=== PATIENT | male | born 1965 | race Caucasian/White ===

== ENCOUNTER 2021-12-01 07:56 | Outpatient (CLI) | payer OTHER, SELFPAY ==
[2021-12-01 13:12] LABS: Chloride* 103 mmol/L (96-114)
[2021-12-01 13:13] LABS: Potassium* 4.1 mmol/L (3.6-5.1); Sodium* 134 mmol/L (135-149)
[2021-12-01 13:15] LABS: Alkaline Phosphatase* 79 U/L (40-150); Aspartate Amino Transferase* 21 U/L (12-35); Bilirubin Total* 0.6 mg/dL (0.1-1.5); Blood Urea Nitrogen* 23 mg/dL (7-30); Carbon Dioxide* 26 mmol/L (20-32); Creatinine* 0.9 mg/dL (0.5-1.5); Estimated Glomerular Filt Rate 101 ml/min; Total Protein* 6.2 g/dL (6.0-8.3)
[2021-12-01 13:16] LABS: Alanine Aminotransferase* 31 U/L (4-50); Calcium* 8.7 mg/dL (8.4-10.6); Glucose* 175 mg/dL (60-115)
--- OUTSIDE RECORDS SUMMARY | 2021-12-26 13:02 | XMS_ITS | Encounter Summary ---
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
--- OUTSIDE RECORDS SUMMARY | 2021-12-26 13:02 | XMS_ITS | Encounter Summary ---
:1965 Author Organization [facility] Address [address] [place] [address] Care Team Providers Name Role Phone Daryn Mackay MD Primary Care Provider [phone] Encounter Details Date Type Department Care Team Description 05/02/2018 Travel Social History Tobacco Use Types Packs/Day Years Used Date Never Assessed Sex Assigned at Date Recorded Not on file documented as of this encounter Plan of Treatment Not on filedocumented as of this encounter Visit Diagnoses Not on filedocumented in this encounter Care Teams Partner Alliance Manager Relationship Specialty Start Date End Date Daryn Mackay MD PCP - General 04/23/18 documented as of this encounter
--- OUTSIDE RECORDS SUMMARY | 2021-12-26 13:02 | XMS_ITS | Encounter Summary ---
:1965 Author Organization [place] Address [address] [place] [id number] Care Team Providers Name Role Phone Daryn Mackay MD Primary Care Provider Reason for Visit Auth/Cert Specialty Diagnoses / Procedures Referred By Contact Refer red To Contact Gastroenterology Diagnoses screening Pr Endoscopy Procedures COLONOSCOPY [address] [facility] [place] [phone] Phone: Fax: Referral ID Status Reason Start Date Expiration Date Visits Requ ested Visits Authorized [id number] 1 1 Encounter Details Date Type Department Care Team Description 05/02/2018 Surgery [facility] Eleni Rose COLONOSCOPY, Clinic Kaylin Gunn DO SINGLE OR MULTIPLE [address] [facility] [address] [facility] BIOPSY/POLYPECTOMY BY [place] [phone] [place] [address] BIOPSY [phone] (Wo rk) Surgery Details Date/Time Status Location OR Service Patient Class Case Case Trauma Class Type Case? 05/02/18 8:15 Posted [place] [facility] GI 02 General Outpatient AM Panel 1 Procedure [facility] Anes Op Region Wound Class Commen ts COMBINED N/A Monitor Rectum II-Clean colonoscopy wi th COLONOSCOPY, Anesthesia Care Contaminated biops ies, SINGLE OR polypectomy an d MULTIPLE clip placement BIOPSY/POLYPECTOM Y BY BIOPSY Surgeon Surgeon Role Service Panel Eleni Rose DO Primary General 1 Special Needs Daryn Mackay MD/ [facility] Prep information emailed to [email or web address] 03-10-18 je pt called to reschedule documented in this encounter Social History Tobacco Use Types Packs/Day Years Used Date Never Assessed Sex Assigned at Date Recorded Not on file documented as of this encounter Last Filed Vital Signs Vital Sign Reading Time Taken Comments Blood Pressure 98/55 05/02/2018 9:00 AM THERAPIST PHYS Pulse - - Temperature 36.8 ??C (98.3 ??F) 05/02/2018 7:34 AM THERAPIST PHYS Respiratory Rate 16 05/02/2018 9:00 AM THERAPIST PHYS Oxygen Saturation 94% 05/02/2018 9:00 AM THERAPIST PHYS Inhaled Oxygen Concentration - - Weight 120.2 kg (265 lb) 05/02/2018 7:34 AM THERAPIST PHYS Height 182.9 cm (6') 05/02/2018 7:34 AM THERAPIST PHYS Body Mass Index 35.94 05/02/2018 7:34 AM THERAPIST PHYS documented in this encounter Medications at Time of Discharge Medication Sig Dispensed Refills Start Date End Date amLODIPine (NORVASC) 5 MG Take 5 mg by mouth 0 tablet daily apremilast (OTEZLA) 30 MG Take 30 mg by mouth 2 0 tablet times daily aspirin (ASA) 325 MG EC Take 325 mg by mouth 0 tablet daily losartan-hydrochlorothiazi Take 1 tablet by 0 de (HYZAAR) 100-12.5 MG mouth daily tablet documented as of this encounter H&P Notes Eleni Rose, - 05/02/2018 7:28 AM CST 53 year old year old male here for colonoscopy for screening. Patient has history of collagenous colitis. Denies any changes in stool. Occasionally has blood when he wipes, however believes he has hemorrhoids. There is no problem list on file for this patient. Past Medical History: Diagnosis Date ??? Hypertension History reviewed. No pertinent surgical history. History reviewed. No pertinent family history. No current outpatient medications on file. Allergies Allergen Reactions ??? Nka [No Known Allergies] Pt Exam: There were no vitals taken for this visit. Awake, Alert OX3 Lungs - CTA bilaterally CV - RRR, no murmurs, distal pulses intact Abd - soft, non-distended, non-tender, +BS Extr - No cyanosis or edema A/P 53 year old year old male in need of colonoscopy for screening. Risks, benefits, alternatives, and complications were discussed including the possibility of perforation, bleeding, missed lesion andthe patient agreed to proceed Eleni Rose DO on 05/02/2018 at 7:27 AM APIST PHYS documented in this encounter Miscellaneous Notes Brief Op Note - Eleni Rose DO - 05/02/2018 8:52 AM CST [facility] Brief Operative Note Pre-operative diagnosis: screening Post-operative diagnosis * No post-op diagnosis entered * Procedure: Procedure(s): COMBINED COLONOSCOPY, SINGLE OR MULTIPLE BIOPSY/POLYPECTOMY BY BIOPSY Surgeon: Surgeon(s) and Role: * Eleni Rose DO - Primary Anesthesia: Monitor Anesthesia Care Estimated blood loss: Minimal Drains: None Specimens: ID Type Source Tests Collected by Time Destination A : eval for chronic diarrhea Biopsy Large Intestine, Left/Descending SURGICAL PATHOLOGY EXAM Eleni Rose, 05/02/2018 8:20 AM B : Biopsy Large Intestine, Transverse SURGICAL PATHOLOGY EXAM Eleni Rose DO 05/02/2018 8:27 AM C : Polyp Large Intestine, Rectum SURGICAL PATHOLOGY EXAM Eleni Rose, 05/02/2018 8:35 AM Findings: 1. Sigmoid diverticulosis 2. 20mm polyp at 20 cm, removed with hot snare, hot forceps, clips applied after intervention, tattooed distally Complications: None. Implants: None. Eleni Rose DO on 05/02/2018 at 8:52 AM APIST PHYS documented in this encounter Plan of Treatment Not on filedocumented as of this encounter Procedures Procedure Name Priority Date/Time Associated Comments Diagnosis SURGICAL PATHOLOGY Routine 05/02/2018 8:20 AM Res ults for this EXAM THERAPIST PHYS procedure are i n the results section. COLONOSCOPY, WITH 05/02/2018 8:09 AM screening POLYPECTOMY AND THERAPIST PHYS BIOPSY Special Needs Daryn Mackay MD/ [facility] Prep information emailed to [email or web address] 03-10-18 pt called to reschedule COLONOSCOPY Routine 05/02/2018 8:02 AM THERAPIST PHYS Resul ts for this procedure are in the results section . documented in this encounter Results Surgical pathology exam (05/02/2018 8:20 AM THERAPIST PHYS) Component Value Ref Test Analysis Performed At [facility] Range Method Time Signature Copath Report Patient Name: BRANDON CHEN MR#: [id number] Specimen #: [id number] Collected: 05/02/2018 Received: 05/02/2018 Reported: 05/05/2018 11:30 Ordering Phy(s): ELENI ROSE For improved result formatting, select 'View Enhanced Report Format' under Linked Documents section. SPECIMEN(S): A: Colon biopsy, descending B: Colon biopsy, transverse C: Rectal polyp FINAL DIAGNOSIS: A. Colon, descending, biopsy: - No diagnostic alterations - see comment. B. Colon, transverse, biopsy: - No diagnostic alterations. C. Rectum, polyp, polypectomy: - Villous adenoma - No evidence of high grade dysplasia or malignancy. COMMENT: There is patchy mild thickening of the subepithelial collage n layer with some denudation. ??This is not seen in specimen B. ??In the lack of history of watery diarrhea, t he findings could be nonspecific, however an evolving collagenous colitis cannot be ruled out. Electronically signed out by: Aron Herrera M.D., PhD CLINICAL HISTORY: 53 year old male. ??Screening colonoscopy showed 2.0 cm po lyp in rectum and sigmoid diverticulosis. GROSS: Three specimen containers with formalin are received labeled with the patient's name, date of , and medical record number. ??Information on the requisition slip , containers, and associated labels is confirmed. A. The specimen is designated large intestine left/descendi ng. The specimen consists of a single pale smallwood soft tissue fragment measuring 0.4 cm in greatest dimension. The specimen is entirely submitted in one cassette. B. The specimen is designated large intestine, transverse. The specimen consists of two pale smallwood soft tissue fragments measuring up to 0.3 cm in greatest dimension. The specimen is entirely submitted in one cassette. C: ??The specimen is designated large intestine, rectum. T he specimen consists of multiple pale smallwood soft tissue fragments ranging from 0.2 cm to 2.1 cm in greatest dimension. ??The resection margin of the largest polyp is inked blue and the polyp is sectioned. ??The specim en is entirely submitted. ??Summary of cassettes: C1 - smaller polyps C2-C4 - largest polyp, sectioned (Dictated by: Kelsey Trimble 05/02/2018 04:49 PM) MICROSCOPIC: Microscopic examination is performed. CPT Codes: A: 71003-WC6 B: 95042-CO7 C: 65455-FZ3 TESTING LAB LOCATION: [address] [address] COLLECTION SITE: Client: [facility] Location: [place] ([place]) Specimen (Source) Anatomical Collection Method Collection Time Re ceived Time Location / / Volume Laterality Specimen from LARGE INTESTINE 05/02/2018 8:20 unspecified body PART / Unknown AM THERAPIST PHYS site obtained by biopsy (specimen) Specimen from LARGE INTESTINE 05/02/2018 8:27 unspecified body PART / Unknown AM THERAPIST PHYS site obtained by biopsy (specimen) Polyp (morphologic RECTUM STRUCTURE / 05/02/2018 8:35 abnormality) Unknown AM THERAPIST PHYS Eleni OLIVEIRA - [place] Performing Organization Address City/State/ZIP Code Phon e Number [place] COLONOSCOPY (05/02/2018 8:02 AM THERAPIST PHYS) [facility] Method Time Signature COLONOSCOPY RADIOLOGY Patient Name: Brandon Chen ?Procedure Da te: 05/02/2018 8:02 AM RESULTS ? Date of Bir th: 1965 Admit Type: Outpatient ?Age: 53 Gender: Male ?Attending MD: Eleni Rose MD Total Sedation Time: ? Procedure: ? Colonoscopy Indications: ? Screening for colorectal malignant neoplasm Providers: ? Eleni Rose MD, Alex Christian RN Referring : ?Daryn Mackay Medicines: ? Monitored Anesthesia Care Complications: ? No immediate complications. Procedure: ? Pre-Anesthesia Assessment: ? - Prior to the procedure, a History and Physical was ? performed, and patient medications, allergies and ? sensitivities were reviewed. The patient's tolerance of ? previous anesthesia was revie wed. ? - The risks and benefits of the procedure and the ? sedation options and risks were discussed with the ? patient. All questions were answered and informed ? consent was obtained. ? - Patient identification and proposed procedure were ? verified prior to the procedure by the physician, the ? nurse and the environmental tech. The procedure was verified in ? the pre-procedure area in the endoscopy suite. ? After obtaining informed consent, the colonoscope was ? passed under direct vision. Throughout the procedure, ? the patie nt's blood pressure, pulse, and oxygen ? saturations were monitored continuously. The Colonoscope ? was introduced through the anus and advanced to the ? cecum, identified by appendiceal orifice and ileocecal ? valve. The colonoscopy was performed without difficulty. ? The patient tolerated the procedure well. The quality of ? the bowel preparation was goo d. ? Findings: ? The perianal and digital rectal examinations were nor mal. Pertinent ? negatives include normal sphincte r tone, no palpable rectal lesions and ? normal prostate (size, shape, and consistency). ? A 20 mm polyp was found in the recto-sigm oid colon at 20 cm. The polyp ? was pedunculated. Polypectomy was attempted, initiall y using a hot ? snare. Polyp resection was incomplete with this devic e. This ? intervention then req uired a different device and polypectomy technique. ? The polyp was removed with a piecemeal technique usin g a hot biopsy ? forceps. Resection an d retrieval were complete. Estimated blood loss was ? minimal. To prevent bleeding after mucosal resectio n, two hemostatic ? clips were successfully placed. T here was no bleeding at the end of the ? procedure. Area was t attooed distally with an injection of 2 mL of Sindhu ? ink. Specimen verified with nurse and tech with name and MRN. ? Biopsies were taken with a cold f orceps in the ascending and transverse ? colon for histology. EBL was minimal. A clip was appl ied for ? intramucosal hematoma from initial biopsy to prevent bleeding ? successfully. No bleeding at end of maneuver. Speci men verified with ? nurse and tech with name and MRN. ? Diverticulosis of sigmoid colon ? Impression: ?- One 20 mm polyp at the recto-sigmoid colon, removed ? piecemeal using a hot biopsy forceps. Resected and ? retrieved. Clips were placed. Tattooed. ? - Biopsies were taken with a cold forceps for histology ? in the as cending colon and transverse colon for ? histology. ? - Sigmoid diverticulosis Recommendation: ?- Discharge patient to home (ambulat ory). ? - High fiber diet indefinitel y. ? - Continue present medication s. ? - Await pathology results. ? - Repeat colonoscopy in 1 year for surveillance after ? piecemeal polypectomy. ? Signed Electronically by Eleni Rose MD Eleni Rose MD 05/02/2018 8:51:39 AM I was physically present for the entire viewing portion of t he exam. [id number] Rose MD Number of Addenda: 0 Note Initiated On: 05/02/2018 8:02 AM Scope In: 8:12:02 AM Scope Out: 8:46:05 AM Specimen (Source) Anatomical Collection Method Collection Time Re ceived Time Location / / Volume Laterality 05/02/2018 8:02 AM THERAPIST PHYS Daryn Mackay MD PROCEDURES Performing Organization Address City/State/ZIP Code Phon e Number RADIOLOGY RESULTS documented in this encounter Visit Diagnoses Not on filedocumented in this encounter Administered Medications Inactive Administered Medications - up to 3 most recent administrations Medication Order MAR Action Action Date Dose Rate Site lactated ringers infusion New Bag 05/02/2018 7:42 AM THERAPIST PHYS 30 mL/hr at 30 mL/hr, Intravenous, CONTINUOUS, On admission to procedural area. Do NOT use in patient having renal dialysis., Pre-procedure, Starting on Sat05/02/18 at 0715, Until Sat05/02/18 at 1126 lidocaine (LMX4) kit Topical, EVERY 1 HOUR PRN, pain, with VA D insertion or accessing implanted port., Starting on Sat05/02/18 at 0710, Do NOT give if patient has a history of allergy to any local anesthetic or any eliz product. Apply 30 minutes prior to VAD insertion or port access. MAX Dose: 2.5 g (?? of 5 g t ube), Pre-procedure lidocaine 1 % 1 mL Given 05/02/2018 7:43 AM THERAPIST PHYS 1 mL 1 mL, Other, EVERY 1 HOUR PRN, mild pain with VAD insertion or accessing implanted port, Starting on Sat05/02/18 at 0710, Do NOT give if patient has a history of allergy to any local anesthetic or any eliz product. MAX dose 1 mL subcutaneous OR intradermal in divided doses., Pre-procedure ondansetron (ZOFRAN) injection 4 mg 4 mg, Intravenous, ONCE PRN, nausea, vomiting, Adminis ter over 2-5 Minutes, Starting on Sat05/02/18 at 0710, For 1 dose, Give in ENDO pre procedure prep area. Irritant. For ordered IV doses 0.1-4 mg, give IV Push undiluted over 2-5 minutes., Pre-procedure sodium chloride (PF) 0.9% PF flush 3 mL 3 mL, Intracatheter, EVERY 1 HOUR PRN, l ine flush, for peripheral IV flush post IV meds, Starting on Sat05/02/18 at 0710, Pre-procedure sodium chloride (PF) 0.9% PF flush 3 mL 3 mL, Intracatheter, EVERY 8 HOURS, First dose on Sat05/02/18 at 0715, And Q1H PRN, to lock peripheral IV dormant line., Pre-procedur e documented in this encounter Active and Recently Administered Medications Times are shown in THERAPIST PHYS. Scheduled Medication Order 04/30/2018 05/01/2018 05/02/2018 sodium chloride (PF) 0.9% PF flush 3 mL 0715 (Canceled Entry - Provider: Orders Generic Provider - Comment: Automatically canceled at discontinue of medication order) 3 mL, Intracatheter, EVERY 8 HOURS, Firs t dose on Sat05/02/18 at 0715, And Q1H PRN, to lock peripheral IV dormant line., Pre-procedure Continuous Medication Order 04/30/2018 05/01/2018 05/02/2018 lactated ringers infusion 0742 ( New Bag - Provider: Keke Kyle, RN) at 30 mL/hr, Intravenous, CONTINUOUS, On admission to procedural area. Do NOT use in patient having renal dialysis., Pre-procedure, Starting Sat05/02/18 at 0715, Until Sat05/02/18 at 1126 PRN Medication Order 04/30/2018 05/01/2018 05/02/2018 flumazenil (ROMAZICON) injection 0.2 mg 0.2 mg, Intravenous, EVERY 1 MIN PRN, be nzodiazepine reversal, over sedation, Administer over 1 Minutes, Starting Sat05/02/18 at 0854, For 12 hours, Give over 15 seconds. If inadequate response after 4 5 seconds, may repeat up to a MAX total dose of 1 mg. Continue monitoring until discharge criteria are met for a minimum of 2 hours Irritant. For ordered IV doses 0.1-1 mg, give IV Push undiluted. Admin ister each 0.2mg over 15 seconds., Post-procedure lidocaine (LMX4) kit Topical, EVERY 1 HOUR PRN, pain, with VA D insertion or accessing implanted port., Starting Sat05/02/18 at 0710, Do NOT give if patient has a history of allergy to any local anesthetic or any eliz pr oduct. Apply 30 minutes prior to VAD ins ertion or port access. MAX Dose: 2.5 g (?? of 5 g tube), Pre-procedure lidocaine 1 % 1 mL 0743 (Given - Provider: Keke Kyle, RN) 1 mL, Other, EVERY 1 HOUR PRN, mild pain with VAD insertion or accessing implanted port, Starting Sat05/02/18 at 0710, Do NOT give if patient has a history of allergy to any local anesthetic or any ca ine product. MAX dose 1 mL subcutaneous OR intradermal in divided doses., Pre-procedure naloxone (NARCAN) injection 0.1-0.4 mg 0.1-0.4 mg, Intravenous, EVERY 2 MIN PRN , opioid reversal, Starting Sat05/02/18 at 0854, For 24 hours, For apnea or imminent respiratory arrest: give 0.4 mg IV undiluted Q 2 minutes PRN until desired d egree of reversal is obtained, stop opio id and notify provider. Continue monitoring until discharge criteria are met for a minimum of 2 hours. For severe sedation, decrease in respiratory depth, quality or Respiratory Rate less than 8: give 0 .1 mg IV Q 2 minutes x 3 doses, stop opioid and notify provider. Try to minimize reversal of analgesia especially in end-of-life patients. Continue monitoring unt il discharge criteria are met for a mini mum of 2 hours For ordered IV doses 0.1- 2mg give IVP. Give each 0.4mg over 15 seconds in emergency situations. For non- emergent situations further dilute in 9mL o f NS to facilitate titration of response., Post-procedure ondansetron (ZOFRAN) injection 4 mg 4 mg, Intravenous, ONCE PRN, nausea, vom iting, Administer over 2-5 Minutes, Starting Sat05/02/18 at 0710, For 1 dose, Give in ENDO pre procedure prep area. Irritant. For ordered IV doses 0.1-4 mg, give IV Push undiluted over 2-5 minutes., Pre-procedure sodium chloride (PF) 0.9% PF flush 3 mL 3 mL, Intracatheter, EVERY 1 HOUR PRN, l ine flush, for peripheral IV flush post IV meds, Starting Sat05/02/18 at 0710, Pre-procedure sodium chloride (PF) 0.9% PF flush 3 mL 3 mL, Intravenous, EVERY 1 MIN PRN, line flush, after medication administration. 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
--- OUTSIDE RECORDS SUMMARY | 2021-12-26 13:02 | XMS_ITS | Encounter Summary ---
:1965 Author Organization [facility] Address [address] [place] [address] Care Team Providers Name Role Phone Daryn Mackay MD Primary Care Provider [phone] Reason for Visit Auth/Cert Specialty Diagnoses / Procedures Referred By Contact Refer red To Contact Gastroenterology Diagnoses screening [place] Endoscopy Procedures COLONOSCOPY [address] [place], [place] [phone] Phone: Fax: Referral ID Status Reason Start Date Expiration Date Visits Requ ested Visits Authorized [id number] 1 1 Encounter Details Date Type Department Care Team Description 05/02/2018 Anesthesia Event [facility] Jeremy Coulter APRN PUNCHBOARD STUFFER [address] [place] [address] [place] Prasanth Ruth APRN CRNA [facility] ANESTHESIA [address] [place] [address] [address] [place] [address] 13 Anesthesia Record Procedure Summary Procedure Name Responsible Anesthesia Start Anesthesia Stop Time Anesthesiologist Time COMBINED Jeremy Mendoza APRN CRNA 05/02/18 0809 05/02 0853 COLONOSCOPY, SINGLE OR MULTIPLE BIOPSY/POLYPECTOMY BY BIOPSY (N/A Rectum) Events Date Time Event Comment 05/02/2018 0809 An Start 0809 An Start Data 0817 0851 an stop data 0853 An Stop Electronically s igned by Jeremy Mendoza on May 02, 2018 8:54 AM Name Total propofol 10 mg/mL 600 mg Agents Name NO HELIOX O2 N2O Air Exp Sevoflurane Exp Isoflurane Exp Desflurane Exp N2O Ins Sevoflurane Ins Isoflurane Ins Desflurane O2 Auxiliary Blood No blood administrations on file. Lines, Drains, and Airways Type Details Placement Removal Peripheral IV 05/02/18; 0742; 20 G; 05/02/18 0742 by 05/02/18 0832 by Right; Hand; Keke Kyle RN Higgins, Mado nna, Injectable; Tolerated RN well Retired Non-Surgical 05/02/18; 0815; 100; 05/02/18 0815 by 05/02 0820 by Airway oral Jeremy Mendoza APRN Yoshida, K ent N, CRNA APRN CRNA documented in this encounter Social History Tobacco Use Types Packs/Day Years Used Date Never Assessed Sex Assigned at Date Recorded Not on file documented as of this encounter OR Notes Anesthesia Postprocedure Evaluation - Jeremy Mendoza APRN CRNA - 05/02/2018 8:55 AM CST Patient: Balwinder Chen Procedure(s): COMBINED COLONOSCOPY, SINGLE OR MULTIPLE BIOPSY/POLYPECTOMY BY BIOPSY Diagnosis:screening Diagnosis Additional Information: No value filed. Anesthesia Type: No value filed. Note: Anesthesia Post Evaluation Patient location during evaluation: Bedside Patient participation: Able to fully participate in evaluation Level of consciousness: combative Pain management: adequate Airway patency: patent Cardiovascular status: acceptable Respiratory status: acceptable Hydration status: acceptable PONV: none Anesthetic complications: None Last vitals: Vitals: 05/02/18 0734 BP: 117/87 Resp: 16 Temp: 36.8 ??C (98.3 ??F) SpO2: 94% Electronically Signed By: Jeremy Mendoza APRN CRNA May 02, 2018 8:55 AM ETRICS TECH Anesthesia Preprocedure Evaluation - Jeremy Mendoza APRN CRNA - 05/01/2018 6:54 AM CST Anesthesia Pre-Procedure Evaluation Patient: Balwinder Chen : 1965 Preoperative Diagnosis: screening Procedure(s): COLONOSCOPY Past Medical History: Diagnosis Date ??? Hypertension History reviewed. No pertinent surgical history. Anesthesia Evaluation . Pt has had prior anesthetic. Type: MAC No history of anesthetic complications ROS/MED HX ENT/Pulmonary: (+)sleep apnea, ADRIANA risk factors , . . Neurologic: - neg neurologic ROS Cardiovascular: (+) hypertension----. : . . . :. . METS/Exercise Tolerance: >4 METS Hematologic: - neg hematologic ROS Musculoskeletal: - neg musculoskeletal ROS GI/Hepatic: - neg GI/hepatic ROS Renal/Genitourinary: - ROS Renal section negative Endo: (+) Obesity, . Psychiatric: - neg psychiatric ROS Infectious Disease: - neg infectious disease ROS Malignancy: - no malignancy Other: - neg other ROS Physical Exam Normal systems: cardiovascular, pulmonary and dental Airway Mallampati: I TM distance: >3 FB Neck ROM: full Dental Cardiovascular Rhythm and rate: regular and normal Pulmonary breath sounds clear to auscultation No results found for: WBC, HGB, HCT, PLT, CRP, SED, NA, POTASSIUM, CHLORIDE, CO2, BUN, CR, GLC, PILI,PHOS, MAG, ALBUMIN, PROTTOTAL, ALT, AST, GGT, ALKPHOS, BILITOTAL, BILIDIRECT, LIPASE, AMYLASE, MATT, PTT, INR, FIBR, TSH, T4, T3, HCG, HCGS, CKTOTAL, CKMB, TROPN Preop Vitals BP Readings from Last 3 Encounters: No data found for BP Pulse Readings from Last 3 Encounters: No data found for Pulse Resp Readings from Last 3 Encounters: No data found for Resp SpO2 Readings from Last 3 Encounters: No data found for SpO2 Temp Readings from Last 1 Encounters: No data found for Temp Ht Readings from Last 1 Encounters: No data found for Ht Wt Readings from Last 1 Encounters: No data found for Wt There is no height or weight on file to calculate BMI. Anesthesia Plan History & Physical Review History and physical reviewed and following examination; no interval change. ASA Status: 3 . NPO Status: > 6 hours Plan for MAC Reason for MAC: Deep or markedly invasive procedure (G8) Postoperative Care Consents Anesthetic plan, risks, benefits and alternatives discussed with: Patient.. Prasanth Ruth CRNA, JOCELYNE PUNCHBOARD STUFFER ETRICS TECH documented in this encounter Plan of Treatment Not on filedocumented as of this encounter Visit Diagnoses Not on filedocumented in this encounter Administered Medications Inactive Administered Medications - up to 3 most recent administrations Medication Order MAR Action Action Date Dose Rate Site propofol (DIPRIVAN) injection 10 Given 05/02/2018 8:43 AM OBSTETRICS TECH 10 0 mg mg/mL vial PRN, Starting on Sat05/02/18 at 0812, Anesthesia Intra-op Given 05/02/2018 8:30 AM OBSTETRICS TECH 100 mg Given 05/02/2018 8:16 AM OBSTETRICS TECH 100 mg documented in this encounter Care Teams Pharmaceutical Analyst Relationship Specialty Start Date End Date Daryn Mackay MD PCP - General 04/23/18 documented as of this encounter
--- OUTSIDE RECORDS SUMMARY | 2021-12-26 13:02 | XMS_ITS | Continuity of Care Document ---
:1965 Author Organization [facility] Address [address] [address] [place] [address] Phone Care Team Providers Name Role Phone Sherron Meza CRNA Unavailable Unavailable Allergies, Adverse Reactions, Alerts Substance Reaction Status Criticality No Known Allergies Active No Informatio n Medications Medication Instructions Dosage Effective Status Comments Dates (start - stop) Otezla 30 mg take 1 tablet by 30 MG - Active tablet oral route 2 times every day approximately 12 hours apart LOSARTAN-HYDROCHLO take 1 tablet by Not Available - Activ e ROTHIAZIDE oral route every (unknown strength) day AMLODIPINE take 1 tablet by Not Available - Active BESYLATE (unknown oral route every strength) day METFORMIN ER take 2 tablet by Not Available - Active OSMOTIC (unknown oral route every strength) day with the evening meal TESTOSTERONE inject 0.5 Not Available - Active CYPIONATE (unknown milliliter by strength) intramuscular route every 4 weeks VITAMIN D3 take 1 tablet by Not Available - Active (unknown strength) oral route every day JATENZO (unknown take 1 capsule by Not Available - No Curry papa strength) oral route 2 times Active every day in the morning and evening Procedures Procedure Date Colonoscopy Flex; W/remov Les- Level Iv-surg Path Gross/micro Advance Directives Directive Yes / No Effective Date File Name No Information Encounters Encounter Practice Location Reason(s) Diagnoses Date Provider Provide rs Description For Visit Copied on Encounter [facility] No Information Derrick Referri ng [facility] INSERTER Provider: Health JOSE M, Endoscopy [address] Sherron. Mario [address] [place] [address], [place] A, [address] [facility] [place], [place], [place] [place] [id number], 500, [address], [place] [facility] tel: [place], [place], [place], [place], [phone] [id number] , [place]. . tel: tel: [phone] [facility] GI Screening Oct- Aurea YOUNG Referring [facility] Symptoms ColonoscopyBenign Mario. Pro vider: Health [place], Endoscopy or neoplasm of [address] Concerns rectum[place]ounter [place] [address], (chief for screening for Jaylen YOUNG, [address] [facility] complaint) malignant neoplasm [place], [place], [place], of colon [address], [id number], [facility] is, [place], , [place], tel: [phone] , [place]. tel: tel: [phone] [facility] No Information [facility]ina [facility], [address] [address], [facility] [place], [place], [place], [place] [id number], [address], [place] tel: [place], [place], [phone] , [place]. tel: [phone] Family History Family Member Type Diagnosis Age At Onset Mother Problem (finding) Asthma Immunizations Vaccine Date Status Comments SARS-COV-2 (COVID-19) vaccine, administered N ote: MIIC bi-directional mRNA, spike protein, LNP, interf kasey ; Source: Other preservative free, 30 mcg/0.3mL Registry dose Seasonal, quadrivalent, administered Note: PA IC bi-directional recombinant, injectable interfac e ; Source: Other influenza vaccine, preservative Registry free zoster vaccine recombinant administered Note: MIIC bi-directional interface ; Sour ce: Other Registry zoster vaccine recombinant administered Note: MIIC bi-directional interface ; Sour ce: Other Registry SARS-COV-2 (COVID-19) vaccine, administered N ote: MIIC bi-directional mRNA, spike protein, LNP, interf kasey ; Source: Other preservative free, 30 mcg/0.3mL Registry dose SARS-COV-2 (COVID-19) vaccine, administered N ote: MIIC bi-directional mRNA, spike protein, LNP, interf kasey ; Source: Other preservative free, 30 mcg/0.3mL Registry dose Influenza, seasonal, injectable, administered Note: MIIC bi-directional preservative free interface ; So urce: Other Registry Payers Payer name Insurance type Covered republican ID Authorization(s ) Erika [id number] Social History Type Description Quantity Date Captured Comments Sex Male Smoking Status No Information Chief Complaint And Reason For Visit No Information Reason For Referral Reason For Referral No Information Plan Of Treatment Date Type Action Status No Information History Of Present Illness Encounter Date Complaint History Of Present I llness GI Symptoms or Concerns Functional Status Date Functional Assessment No Information Medications Administered Medication Instructions Dosage Effective Dates Status Comment s (start - stop) JATENZO (unknown take 1 capsule by Not Available - No Curry papa strength) oral route 2 times Active every day in the morning and evening Instructions Date Instruction Additional Informati on Colon Polyps Related to Screening Colonoscopy Assessments Type Assessment Date No Information Patient Care Teams Name Effective Dates (start - stop) Status M odalys No Information
--- OUTSIDE RECORDS SUMMARY | 2021-12-26 13:02 | XMS_ITS | Encounter Summary ---
:1965 Author Organization [facility] Address [address] [place] [address] Care Team Providers Name Role Phone Daryn Mackay MD Primary Care Provider [phone] Reason for Visit Auth/Cert Specialty Diagnoses / Procedures Referred By Contact Refer red To Contact Gastroenterology Diagnoses screening [place] Endoscopy Procedures COLONOSCOPY [address] [place], [place] [address] Phone: Fax: Referral ID Status Reason Start Date Expiration Date Visits Requ ested Visits Authorized [id number] 1 1 Encounter Details Date Type Department Care Team Description 05/02/2018 Hospital Encounter [facility] Eleni Rose [facility] DO Luis A [address] [facility] [address] [place] [address] [place] [address] [phone] (Wo rk) Social History Tobacco Use Types Packs/Day Years Used Date Never Assessed Sex Assigned at Date Recorded Not on file documented as of this encounter Last Filed Vital Signs Vital Sign Reading Time Taken Comments Blood Pressure 113/78 05/02/2018 9:12 AM MUSIC INSTRUCTOR Pulse - - Temperature 36.8 ??C (98.3 ??F) 05/02/2018 7:34 AM MUSIC INSTRUCTOR Respiratory Rate 16 05/02/2018 9:12 AM MUSIC INSTRUCTOR Oxygen Saturation 95% 05/02/2018 9:12 AM MUSIC INSTRUCTOR Inhaled Oxygen Concentration - - Weight 120.2 kg (265 lb) 05/02/2018 7:34 AM MUSIC INSTRUCTOR Height 182.9 cm (6') 05/02/2018 7:34 AM MUSIC INSTRUCTOR Body Mass Index 35.94 05/02/2018 7:34 AM MUSIC INSTRUCTOR documented in this encounter Medications at Time [...] as of this encounter H&P Notes Eleni Rose DO - 05/02/2018 7:28 AM CST 53 year [...] Rose DO on 05/02/2018 at 7:27 AM C INSTRUCTOR documented in this encounter Miscellaneous Notes Brief Op Note - Eleni Rose DO - 05/02/2018 8:52 AM CST [facility] Brief Operative Note Pre-operative diagnosis: screening Post-operative [...] Large Intestine, Transverse SURGICAL PATHOLOGY EXAM Eleni Rose, 05/02/2018 8:27 AM C : Polyp Large Intestine, Rectum SURGICAL PATHOLOGY EXAM Eleni Rose, DO 05/02/2018 8:35 AM Findings: 1. Sigmoid diverticulosis 2. 20mm polyp at 20 cm, removed with hot snare, hot forceps, clips applied after intervention, tattooed distally Complications: None. Implants: None. Eleni Rose DO on 05/02/2018 at 8:52 AM C INSTRUCTOR documented in this encounter Plan of Treatment Not on filedocumented as of this encounter Procedures Procedure Name Priority Date/Time Associated Comments Diagnosis SURGICAL PATHOLOGY Routine 05/02/2018 8:20 AM Res ults for this EXAM MUSIC INSTRUCTOR procedure are i n the results section. COLONOSCOPY, WITH 05/02/2018 8:09 AM screening POLYPECTOMY AND MUSIC INSTRUCTOR BIOPSY Special Needs Daryn Mackay MD/ [facility] Prep information emailed to [email or web address] 03-10-18 pt called to reschedule COLONOSCOPY Routine 05/02/2018 8:02 AM MUSIC INSTRUCTOR Resul ts for this procedure are in the results section . documented in this encounter Results Surgical pathology exam (05/02/2018 8:20 AM MUSIC INSTRUCTOR) Component Value Ref Test Analysis Performed At [facility] Range Method Time Signature Copath Report Patient Name: BRANDON CHEN MR#: [id number] Specimen #: [id number] Collected: 05/02/2018 Received: 05/02/2018 Reported: 05/05/2018 11:30 [...] Microscopic examination is performed. CPT Codes: A: 20501-NH2 B: 53241-YW5 C: 64962-JV5 TESTING LAB LOCATION: [address] [address] COLLECTION SITE: Client: [facility] Location: [facility] ([facility] Specimen (Source) Anatomical Collection Method Collection Time Re ceived Time Location / / Volume Laterality Specimen from LARGE INTESTINE 05/02/2018 8:20 unspecified body PART / Unknown AM MUSIC INSTRUCTOR site obtained by biopsy (specimen) Specimen from LARGE INTESTINE 05/02/2018 8:27 unspecified body PART / Unknown AM MUSIC INSTRUCTOR site obtained by biopsy (specimen) Polyp (morphologic RECTUM STRUCTURE / 05/02/2018 8:35 abnormality) Unknown AM MUSIC INSTRUCTOR Eleni Rose DO [facility] Performing Organization Address City/State/ZIP Code Phon e Number [place] COLONOSCOPY (05/02/2018 8:02 AM MUSIC INSTRUCTOR) [facility] Method Time Signature COLONOSCOPY RADIOLOGY Patient Name: Brandon Chen ?Procedure Da te: 05/02/2018 8:02 AM RESULTS ? Date of Bir th: 1965 Admit Type: Outpatient ?Age: 53 Gender: Male ?Attending MD: Eleni Rose MD Total Sedation Time: ? Procedure: ? Colonoscopy Indications: ? Screening for colorectal malignant neoplasm Providers: ? Eleni Rose MD, Alex Christian RN Referring MD: ?Daryn Mackay [facility]: ? Monitored Anesthesia Care Complications: ? No [...] the physician, the ? nurse and the manager lpn. The procedure was verified in ? the [...] entire viewing portion of t he exam. [id number] Rose MD Number of Addenda: 0 Note Initiated On: 05/02/2018 8:02 AM Scope In: 8:12:02 AM Scope Out: 8:46:05 AM Specimen (Source) Anatomical Collection Method Collection Time Re ceived Time Location / / Volume Laterality 05/02/2018 8:02 AM MUSIC INSTRUCTOR Daryn Mackay MD PROCEDURES Performing Organization Address City/State/ZIP Code Phon e Number RADIOLOGY RESULTS documented in this encounter Visit Diagnoses Not on filedocumented in this encounter Administered Medications Inactive Administered Medications - up to 3 most recent administrations Medication Order MAR Action Action Date Dose Rate Site lactated ringers infusion New Bag 05/02/2018 7:42 AM MUSIC INSTRUCTOR 30 mL/hr at 30 mL/hr, Intravenous, CONTINUOUS, [...] % 1 mL Given 05/02/2018 7:43 AM MUSIC INSTRUCTOR 1 mL 1 mL, Other, EVERY 1 [...] Recently Administered Medications Times are shown in MUSIC INSTRUCTOR. Scheduled Medication Order 04/30/2018 05/01/2018 05/02/2018 sodium [...] 0742 ( New Bag - Provider: Keke Kyle RN) at 30 mL/hr, Intravenous, CONTINUOUS, On [...] 1 mL 0743 (Given - Provider: Keke Kyle RN) 1 mL, Other, EVERY 1 HOUR [...] Post-procedure documented in this encounter Care Teams Tire Recapper Relationship Specialty Start Date End Date Daryn Mackay MD PCP - General 04/23/18 documented as of this encounter
== END 2021-12-01 07:57 | disposition home or self-care (01) ==
LOC: FRMREF 07:58
PROVIDERS: PCP Physician Assistant Medical; Visit Provider Physician Assistant Medical
DX: I10 Essential (primary) hypertension (principal)
CPT/HCPCS: 80053

== ENCOUNTER 2022-02-09 07:39 | Outpatient (CLI) | payer OTHER, SELFPAY ==
--- OUTSIDE RECORDS SUMMARY | 2022-02-16 11:42 | XMS_ITS | Encounter Summary ---
:1965 Author Organization [facility] Address [address] [place] [address] Care Team Providers Name Role Phone Daryn Mackay MD Primary Care Provider [phone] Encounter Details Date Type Department Care Team Description 04/29/2018 Travel Social History Tobacco Use Types Packs/Day Years Used Date Never Assessed Sex Assigned at Date Recorded Not on file documented as of this encounter Plan of Treatment Not on filedocumented as of this encounter Visit Diagnoses Not on filedocumented in this encounter Care Teams Awning Hanger Relationship Specialty Start Date End Date Daryn Mackay MD PCP - General 04/23/18 documented as of this encounter
--- OUTSIDE RECORDS SUMMARY | 2022-02-16 11:42 | XMS_ITS | Encounter Summary ---
:1965 Author Organization [facility] Address [address] [place] [address] Care Team Providers Name Role Phone Daryn Mackay MD Primary Care Provider [phone] Reason for Visit Auth/Cert Specialty Diagnoses / Procedures Referred By Contact Refer red To Contact Gastroenterology Diagnoses screening [place] Endoscopy Procedures COLONOSCOPY [address] [place], [place] [phone] Phone: Fax: Referral ID Status Reason Start Date Expiration Date Visits Requ ested Visits Authorized [id number] 1 1 Encounter Details Date Type Department Care Team Description 05/02/2018 Anesthesia Event [facility] Jeremy Coulter APRN SHEET METAL WORKER MAINTENANCE [address] [place] [address] [place] Prasanth Ruth APRN CRNA [facility] ANESTHESIA [address] [place] [address] [address] [place] [address] 13 Anesthesia Record Procedure Summary Procedure Name [...] APRN CRNA May 02, 2018 8:55 AM R SUPERVISOR Anesthesia Preprocedure Evaluation - Jeremy Mendoza APRN [...] discussed with: Patient.. Prasanth Ruth CRNA, JOCELYNE SHEET METAL WORKER MAINTENANCE R SUPERVISOR documented in this encounter Plan of Treatment Not on filedocumented as of this encounter Visit Diagnoses Not on filedocumented in this encounter Administered Medications Inactive Administered Medications - up to 3 most recent administrations Medication Order MAR Action Action Date Dose Rate Site propofol (DIPRIVAN) injection 10 Given 05/02/2018 8:43 AM TOWER SUPERVISOR 10 0 mg mg/mL vial PRN, Starting on Sat05/02/18 at 0812, Anesthesia Intra-op Given 05/02/2018 8:30 AM TOWER SUPERVISOR 100 mg Given 05/02/2018 8:16 AM TOWER SUPERVISOR 100 mg documented in this encounter Care Teams Tool Marker Relationship Specialty Start Date End Date Daryn Mackay MD PCP - General 04/23/18 documented as of this encounter
--- OUTSIDE RECORDS SUMMARY | 2022-02-16 11:42 | XMS_ITS | Encounter Summary ---
:1965 Author Organization [facility] Address [address] [place] [address] Care Team Providers Name Role Phone Daryn Mackay MD Primary Care Provider [phone] Reason for Visit Auth/Cert Specialty Diagnoses / Procedures Referred By Contact Refer red To Contact Gastroenterology Diagnoses screening [facility] Endoscopy Procedures COLONOSCOPY [address] [place], [place] [phone] Phone: Fax: Referral ID Status Reason Start Date Expiration Date Visits Requ ested Visits Authorized [id number] 1 1 Encounter Details Date Type Department Care Team Description 05/02/2018 Hospital Encounter [facility] Eleni Rose [facility] DO Luis A [address] [facility] [address] [place] [address] [place] [address] [phone] (Wo rk) Social History Tobacco Use Types Packs/Day Years Used Date Never Assessed Sex Assigned at Date Recorded Not on file documented as of this encounter Last Filed Vital Signs Vital Sign Reading Time Taken Comments Blood Pressure 113/78 05/02/2018 9:12 AM POWER SYSTEM DISPATCHER Pulse - - Temperature 36.8 ??C (98.3 ??F) 05/02/2018 7:34 AM POWER SYSTEM DISPATCHER Respiratory Rate 16 05/02/2018 9:12 AM POWER SYSTEM DISPATCHER Oxygen Saturation 95% 05/02/2018 9:12 AM POWER SYSTEM DISPATCHER Inhaled Oxygen Concentration - - Weight 120.2 kg (265 lb) 05/02/2018 7:34 AM POWER SYSTEM DISPATCHER Height 182.9 cm (6') 05/02/2018 7:34 AM POWER SYSTEM DISPATCHER Body Mass Index 35.94 05/02/2018 7:34 AM POWER SYSTEM DISPATCHER documented in this encounter Medications at Time [...] Rose DO on 05/02/2018 at 7:27 AM R SYSTEM DISPATCHER documented in this encounter Miscellaneous Notes Brief Op Note - Eleni Rose DO - 05/02/2018 8:52 AM CST [facility] Brief Operative Note Pre-operative diagnosis: [...] Rose DO on 05/02/2018 at 8:52 AM R SYSTEM DISPATCHER documented in this encounter Plan of Treatment Not on filedocumented as of this encounter Procedures Procedure Name Priority Date/Time Associated Comments Diagnosis SURGICAL PATHOLOGY Routine 05/02/2018 8:20 AM Res ults for this EXAM POWER SYSTEM DISPATCHER procedure are i n the results section. COLONOSCOPY, WITH 05/02/2018 8:09 AM screening POLYPECTOMY AND POWER SYSTEM DISPATCHER BIOPSY Special Needs Daryn Mackay MD/ [facility] Prep information emailed to [email or web address] 03-10-18 pt called to reschedule COLONOSCOPY Routine 05/02/2018 8:02 AM POWER SYSTEM DISPATCHER Resul ts for this procedure are in the results section . documented in this encounter Results Surgical pathology exam (05/02/2018 8:20 AM POWER SYSTEM DISPATCHER) Component Value Ref Test Analysis Performed At [facility] Range Method Time Signature Copath Report Patient Name: BRANDON CHEN MR#: [id number] Specimen #: [id number] Collected: 05/02/2018 Received: 05/02/2018 Reported: 05/05/2018 11:30 [...] Microscopic examination is performed. CPT Codes: A: 72272-PQ3 B: 74462-KZ9 C: [id number] TESTING LAB LOCATION: [address] [address] COLLECTION SITE: Client: [facility] Location: [facility] ([facility]) Specimen (Source) Anatomical Collection Method Collection Time Re ceived Time Location / / Volume Laterality Specimen from LARGE INTESTINE 05/02/2018 8:20 unspecified body PART / Unknown AM POWER SYSTEM DISPATCHER site obtained by biopsy (specimen) Specimen from LARGE INTESTINE 05/02/2018 8:27 unspecified body PART / Unknown AM POWER SYSTEM DISPATCHER site obtained by biopsy (specimen) Polyp (morphologic RECTUM STRUCTURE / 05/02/2018 8:35 abnormality) Unknown AM POWER SYSTEM DISPATCHER Eelni Rose DO [facility] Performing Organization Address City/State/ZIP Code Phon e Number COPATH COLONOSCOPY (05/02/2018 8:02 AM POWER SYSTEM DISPATCHER) [facility] Method Time Signature COLONOSCOPY RADIOLOGY Patient Name: Brandon Chen ?Procedure Da te: 05/02/2018 8:02 AM RESULTS ? Date of Bir th: 1965 Admit Type: Outpatient ?Age: 53 Gender: Male ?Attending MD: Eleni Rose MD Total Sedation Time: ? Procedure: ? Colonoscopy Indications: ? Screening for colorectal malignant neoplasm Providers: ? Eleni Rose MD, Alex Christian RN Referring MD: ?Daryn Mackay [facility]: ? Monitored Anesthesia Care Complications: ? [...] the physician, the ? nurse and the apparatus engineering technologist. The procedure was verified in ? the [...] entire viewing portion of t he exam. [id number] Rose MD Number of Addenda: 0 Note Initiated On: 05/02/2018 8:02 AM Scope In: 8:12:02 AM Scope Out: 8:46:05 AM Specimen (Source) Anatomical Collection Method Collection Time Re ceived Time Location / / Volume Laterality 05/02/2018 8:02 AM POWER SYSTEM DISPATCHER Daryn Mackay MD PROCEDURES Performing Organization Address City/State/ZIP Code Phon e Number RADIOLOGY RESULTS documented in this encounter Visit Diagnoses Not on filedocumented in this encounter Administered Medications Inactive Administered Medications - up to 3 most recent administrations Medication Order MAR Action Action Date Dose Rate Site lactated ringers infusion New Bag 05/02/2018 7:42 AM POWER SYSTEM DISPATCHER 30 mL/hr at 30 mL/hr, Intravenous, CONTINUOUS, [...] % 1 mL Given 05/02/2018 7:43 AM POWER SYSTEM DISPATCHER 1 mL 1 mL, Other, EVERY 1 [...] Recently Administered Medications Times are shown in POWER SYSTEM DISPATCHER. Scheduled Medication Order 04/30/2018 05/01/2018 05/02/2018 sodium [...] Post-procedure documented in this encounter Care Teams Digital Associate Media Director Relationship Specialty Start Date End Date Daryn Mackay MD PCP - General 04/23/18 documented as of this encounter
--- OUTSIDE RECORDS SUMMARY | 2022-02-16 11:42 | XMS_ITS | Clinical Summary ---
:1965 Author Organization [facility] Address [address] [place] [address] Care Team Providers Name Role Phone Daryn Mackay MD Primary Care Provider [phone] Allergies Active Allergy Reactions Severity Noted Date Comments No Known Allergies 04/29/2018 Medications Medication Sig Dispensed Refills Start Date End Date Status apremilast (OTEZLA) 30 Take 30 mg by 0 Active MG tablet mouth 2 times daily losartan-hydrochloroth Take 1 tablet by 0 Active iazide (HYZAAR) mouth daily 100-12.5 MG tablet aspirin (ASA) 325 MG Take 325 mg by 0 Active EC tablet mouth daily amLODIPine (NORVASC) 5 Take 5 mg by mouth 0 Active MG tablet daily Active Problems Problem Noted Date colon polyp- Villious Adenoma 05/07/2018 Overview: Formatting of this note is dif ferent from the original. Collected: 05/02/2018 Received: 05/02/2018 Reported: 05/05/2018 11:30 Ordering Phy(s): ELENI ROSE For improved result formatting, select ' View Enhanced Report Format' under ??Linked Documents section. SPECIMEN(S): A: Colon biopsy, descending B: Colon biopsy, transverse C: Rectal polyp FINAL DIAGNOSIS: A. Colon, descending, biopsy: - No diagnostic alterations - see sonia rolle B. Colon, transverse, biopsy: - No diagnostic alterations. C. Rectum, polyp, polypectomy: - Villous adenoma - No evidence of high grade dysplasia or malignancy Social History Tobacco Use Types Packs/Day Years Used Date Never Assessed Sex Assigned at Date Recorded Not on file Last Filed Vital Signs Vital Sign Reading Time Taken Comments Blood Pressure 113/78 05/02/2018 9:12 AM DISTRIBUTOR OF DIRECTORIES Pulse - - Temperature 36.8 ??C (98.3 ??F) 05/02/2018 7:34 AM DISTRIBUTOR OF DIRECTORIES Respiratory Rate 16 05/02/2018 9:12 AM DISTRIBUTOR OF DIRECTORIES Oxygen Saturation 95% 05/02/2018 9:12 AM DISTRIBUTOR OF DIRECTORIES Inhaled Oxygen Concentration - - Weight 120.2 kg (265 lb) 05/02/2018 7:34 AM DISTRIBUTOR OF DIRECTORIES Height 182.9 cm (6') 05/02/2018 7:34 AM DISTRIBUTOR OF DIRECTORIES Body Mass Index 35.94 05/02/2018 7:34 AM DISTRIBUTOR OF DIRECTORIES Plan of Treatment Not on file Insurance Payer Benefit Plan / Subscriber ID Effective Dates Phone Addre ss Type Group BCBS BCBS OUT OF [id number] 2017-Present [phone] [address] [address] Indemnity STATE [address] [place] [address] Care Teams Pelt Shearer Relationship Specialty Start Date End Date Daryn Mackay MD PCP - General 04/23/18
--- OUTSIDE RECORDS SUMMARY | 2022-02-16 11:42 | XMS_ITS | Continuity of Care Document ---
:1965 Author Organization [facility] Address [address] [address] [place] [address] Phone Care Team Providers Name Role Phone [...] rs Description For Visit Copied on Encounter [facility] No Information Derrick Referri ng Digestive [facility] CHILD DEVELOPMENT TEACHER Provider: Health JOSE M, Endoscopy [address] Mario [address] [place] [address], [place] A, [address] [facility] s, [place], [place], [address] [place] [id number], 500, [place] 500, [place] [facility] tel: [place], [place], [place], [place], [address] [id number] , [place]. . tel: tel: [phone] [facility] GI Screening Oct- Aurea YOUNG Referring Digestive [facility] Symptoms ColonoscopyBenign Mario. Pro vider: Health PA, Endoscopy or neoplasm of 2 [address] Concerns [place]um[place]ounter [place] [place] [address], (chief for screening for Jaylen YOUNG, [address] 45 [facility] complaint) malignant neoplasm [place], [place], [place], of colon [address], [address], [id number], [facility] is, [place], , [place], tel: [phone]. [phone] , [place]. tel: tel: [phone] [facility] No Information [facility] Lina YOUNG [facility], [address] [address], [facility] s, [place], [place], [place] [id number], [address], [place] tel: is, [place], [id number] , [place]. tel: [phone] Family History Family Member Type Diagnosis Age At Onset Mother Problem (finding) Asthma Immunizations Vaccine Date Status Comments SARS-COV-2 (COVID-19) vaccine, administered N ote: MIIC bi-directional mRNA, spike protein, LNP, interf kasey ; Source: Other preservative free, 30 mcg/0.3mL Registry dose Seasonal, quadrivalent, administered Note: [place] IC bi-directional recombinant, injectable interfac e ; [...] Registry Payers Payer name Insurance type Covered alliance party ID Authorization(s ) Erika [id number] Social History Type Description Quantity Date Captured [...]
--- OUTSIDE RECORDS SUMMARY | 2022-02-16 11:42 | XMS_ITS | Encounter Summary ---
:1965 Author Organization [facility] Address [address] [place] [address] Care Team Providers Name Role Phone Daryn Mackay MD Primary Care Provider [phone] Reason for Visit Auth/Cert Specialty Diagnoses / Procedures Referred By Contact Refer red To Contact Gastroenterology Diagnoses screening [place] Endoscopy Procedures COLONOSCOPY [address] [facility] [place] [phone] Phone: Fax: Referral ID Status Reason Start Date Expiration Date Visits Requ ested Visits Authorized [id number] 1 1 Encounter Details Date Type Department Care Team Description 05/02/2018 Surgery [facility] Eleni Rose COLONOSCOPY, Clinic Idahoradha Gunn DO SINGLE OR MULTIPLE [address] [facility] [address] [facility] BIOPSY/POLYPECTOMY BY [place] [address] [place] [address] BIOPSY [phone] (Wo rk) Surgery Details Date/Time Status Location OR Service Patient Class Case Case Trauma Class Type Case? 05/02/18 8:15 Posted [place] GI GI 02 General Outpatient AM Panel 1 Procedure LRB Anes Op Region Wound Class Commen ts COMBINED COLONOSCOPY, N/A MAC Rectum II-Clean Conta minated colonoscopy with SINGLE OR MULTIPLE biopsi es, polypectomy BIOPSY/POLYPECTOMY BY and clip placement BIOPSY Surgeon Surgeon Role Service Panel Eleni Rose DO Primary General 1 Special Needs Daryn Mackay MD/ [facility] Prep information emailed to [email or web address] 03-10-18 ekaterina pt called to reschedule documented in this encounter Social History Tobacco Use Types Packs/Day Years Used Date Never Assessed Sex Assigned at Date Recorded Not on file documented as of this encounter Last Filed Vital Signs Vital Sign Reading Time Taken Comments Blood Pressure 98/55 05/02/2018 9:00 AM CRANBERRY GROWER Pulse - - Temperature 36.8 ??C (98.3 ??F) 05/02/2018 7:34 AM CRANBERRY GROWER Respiratory Rate 16 05/02/2018 9:00 AM CRANBERRY GROWER Oxygen Saturation 94% 05/02/2018 9:00 AM CRANBERRY GROWER Inhaled Oxygen Concentration - - Weight 120.2 kg (265 lb) 05/02/2018 7:34 AM CRANBERRY GROWER Height 182.9 cm (6') 05/02/2018 7:34 AM CRANBERRY GROWER Body Mass Index 35.94 05/02/2018 7:34 AM CRANBERRY GROWER documented in this encounter Medications at Time [...] Rose DO on 05/02/2018 at 7:27 AM BERRY GROWER documented in this encounter Miscellaneous Notes Brief Op Note - Eleni Rose DO - 05/02/2018 8:52 AM CST [facility] Brief Operative Note Pre-operative diagnosis: screening Post-operative [...] Large Intestine, Left/Descending SURGICAL PATHOLOGY EXAM Eleni Rose DO 05/02/2018 8:20 AM B : Biopsy Large Intestine, Transverse SURGICAL PATHOLOGY EXAM Eleni Rose DO 05/02/2018 8:27 AM C : Polyp Large Intestine, Rectum SURGICAL PATHOLOGY EXAM Eleni Rose DO 05/02/2018 8:35 AM Findings: 1. Sigmoid diverticulosis 2. 20mm polyp at 20 cm, removed with hot snare, hot forceps, clips applied after intervention, tattooed distally Complications: None. Implants: None. Eleni Rose DO on 05/02/2018 at 8:52 AM BERRY GROWER documented in this encounter Plan of Treatment Not on filedocumented as of this encounter Procedures Procedure Name Priority Date/Time Associated Comments Diagnosis SURGICAL PATHOLOGY Routine 05/02/2018 8:20 AM Res ults for this EXAM CRANBERRY GROWER procedure are i n the results section. COLONOSCOPY, WITH 05/02/2018 8:09 AM screening POLYPECTOMY AND CRANBERRY GROWER BIOPSY Special Needs Daryn Mackay MD/ [facility] Prep information emailed to [email or web address] 03-10-18 pt called to reschedule COLONOSCOPY Routine 05/02/2018 8:02 AM CRANBERRY GROWER Resul ts for this procedure are in the results section . documented in this encounter Results Surgical pathology exam (05/02/2018 8:20 AM CRANBERRY GROWER) Component Value Ref Test Analysis Performed At [facility] Range Method Time Signature [facility] Report Patient Name: BRANDON CHEN MR#: [id number] Specimen #: [id number] Collected: 05/02/2018 Received: 05/02/2018 Reported: 05/05/2018 11:30 [...] Microscopic examination is performed. CPT Codes: A: 65575-IY2 B: 82069-TD2 C: 74254-FA4 TESTING LAB LOCATION: [address] [address] COLLECTION SITE: Client: [facility] Location: [facility] ([place]) Specimen (Source) Anatomical Collection Method Collection Time Re ceived Time Location / / Volume Laterality Specimen from LARGE INTESTINE 05/02/2018 8:20 unspecified body PART / Unknown AM CRANBERRY GROWER site obtained by biopsy (specimen) Specimen from LARGE INTESTINE 05/02/2018 8:27 unspecified body PART / Unknown AM CRANBERRY GROWER site obtained by biopsy (specimen) Polyp (morphologic RECTUM STRUCTURE / 05/02/2018 8:35 abnormality) Unknown AM CRANBERRY GROWER Eleni Rose DO [facility] Performing Organization Address City/State/ZIP Code Phon e Number COPATH COLONOSCOPY (05/02/2018 8:02 AM CRANBERRY GROWER) [facility] gist Method Time Signature COLONOSCOPY RADIOLOGY Patient Name: Brandon Chen ?Procedure Da te: 05/02/2018 8:02 AM RESULTS ? Date of Bir th: 1965 Admit Type: Outpatient ?Age: 53 Gender: Male ?Attending MD: Eleni Rose MD Total Sedation Time: ? Procedure: ? Colonoscopy Indications: ? Screening for colorectal malignant neoplasm Providers: ? Eleni Rose MD, Alex Christian RN Referring MD: ?Daryn Mackay Medicines: ? Monitored Anesthesia Care [...] the physician, the ? nurse and the manhole stripper. The procedure was verified in ? the [...] entire viewing portion of t he exam. [id number] Rose MD Number of Addenda: 0 Note Initiated On: 05/02/2018 8:02 AM Scope In: 8:12:02 AM Scope Out: 8:46:05 AM Specimen (Source) Anatomical Collection Method Collection Time Re ceived Time Location / / Volume Laterality 05/02/2018 8:02 AM CRANBERRY GROWER Daryn Mackay MD PROCEDURES Performing Organization Address City/State/ZIP Code Phon e Number RADIOLOGY RESULTS documented in this encounter Visit Diagnoses Not on filedocumented in this encounter Administered Medications Inactive Administered Medications - up to 3 most recent administrations Medication Order MAR Action Action Date Dose Rate Site lactated ringers infusion New Bag 05/02/2018 7:42 AM CRANBERRY GROWER 30 mL/hr at 30 mL/hr, Intravenous, CONTINUOUS, [...] % 1 mL Given 05/02/2018 7:43 AM CRANBERRY GROWER 1 mL 1 mL, Other, EVERY 1 [...] Recently Administered Medications Times are shown in CRANBERRY GROWER. Scheduled Medication Order 04/30/2018 05/01/2018 05/02/2018 sodium [...] Post-procedure documented in this encounter Care Teams Building Construction Inspector Relationship Specialty Start Date End Date Daryn Mackay MD PCP - General 04/23/18 documented as of this encounter
--- OUTSIDE RECORDS SUMMARY | 2022-02-16 11:42 | XMS_ITS | Encounter Summary ---
:1965 Author Organization [facility] Address [address] [place] [address] Care Team Providers Name Role Phone Daryn Mackay MD Primary Care Provider [phone] Encounter Details Date Type Department Care Team Description 05/02/2018 Travel Social History Tobacco Use Types Packs/Day Years Used Date Never Assessed Sex Assigned at Date Recorded Not on file documented as of this encounter Plan of Treatment Not on filedocumented as of this encounter Visit Diagnoses Not on filedocumented in this encounter Care Teams Runway Model Relationship Specialty Start Date End Date Daryn Mackay MD PCP - General 04/23/18 documented as of this encounter
== END 2022-02-09 07:40 | disposition home or self-care (01) ==
LOC: FRMREF 02-16 11:40
PROVIDERS: PCP Physician Assistant Medical; Visit Provider Physician Assistant Medical
DX: E29.1 Testicular hypofunction (principal)
CPT/HCPCS: 84403

== ENCOUNTER 2022-08-10 09:11 | Outpatient (CLI) | payer OTHER, SELFPAY | END 2022-08-10 09:12 | disposition home or self-care (01) | PROVIDERS: PCP Physician Assistant Medical; Visit Provider Physician Assistant Medical | DX: Z00.00 Encounter for general adult medical examination without abnormal findings (principal); E11.9 Type 2 diabetes mellitus without complications; I10 Essential (primary) hypertension; E29.1 Testicular hypofunction; E78.1 Pure hyperglyceridemia | CPT/HCPCS: 80053; 80061; 84403 ==

== ENCOUNTER 2023-09-10 08:22 | Outpatient (CLI) | payer OTHER, SELFPAY ==
--- OUTSIDE RECORDS SUMMARY | 2023-09-11 06:11 | XMS_ITS | Referral Summary ---
Author Name Unknown Organization [facility] Address [address] [place] [address] Care Team Providers Care Timber Cutter Name Role Phone Daryn Mackay MD Primary Care Provider + Allergies Active Allergy Reactions Criticality Noted Date Comments No Known Allergies 04/29/2018 Medications Medication Sig Dispensed Refills Start Date End Date Status apremilast (OTEZLA) 30 MG tablet Take 30 mg by mouth 2 times daily Active losartan-hydrochloroth iazide (HYZAAR) 100-12.5 MG tablet Take 1 tablet by mouth daily Active aspirin (ASA) 325 MG EC tablet Take 325 mg by mouth daily Active amLODIPine (NORVASC) 5 MG tablet Take 5 mg by mouth daily Active Active Problems Problem Noted Date Diagnosed Date colon polyp- Villious Adenoma 05/07/2018 Overview: Collected: 05/02/2018 Received: 05/02/2018 Reported: 05/05/2018 11:30 Ordering Phy(s): ELENI ROSE For improved result formatting, select 'View Enhanced Report Format' under ??Linked Documents section. [...] Tobacco Use Types Packs/Day Years Used Date Smoking Tobacco: Never Assessed Sex and Gender Information Value Date Recorded Sex Assigned at Not on file Gender Identity Not on file Sexual Orientation Not on file Last Filed Vital Signs Vital Sign Reading Time Taken Comments Blood Pressure 113/78 05/02/2018 9:12 AM NBA PLAYER Pulse - - Temperature 36.8 ??C (98.3 ??F) 05/02/2018 7:34 AM CS T Respiratory Rate 16 05/02/2018 9:12 AM NBA PLAYER Oxygen Saturation 95% 05/02/2018 9:12 AM NBA PLAYER Inhaled Oxygen Concentration - - Weight 120.2 kg (265 lb) 05/02/2018 7:34 AM NBA PLAYER Height 182.9 cm (6') 05/02/2018 7:34 AM NBA PLAYER Body Mass Index 35.94 05/02/2018 7:34 AM NBA PLAYER Plan of Treatment Not on file Care Teams Timber Cutter Relationship Specialty Start Date End Date Daryn Mackay MD PCP - General 04/23/18
--- OUTSIDE RECORDS SUMMARY | 2023-09-11 06:11 | XMS_ITS | Continuity of Care Document ---
Author Name Unknown Organization [facility] Address [address] [address] [place] [address] Phone Care Team Providers Care Doctor Of Nurse Anesthesia Practice Name Role Phone Sherron Meza CRNA Unavailable Unavailab le Allergies, Adverse Reactions, Alerts Substance Reaction Status Criticality No Known Allergies Active No Inform ation Medications Medication Instructions Dosage Effective Dates (start - stop) Status Comments Otezla 30 mg tablet take 1 tablet by oral route 2 times every day approximately 12 hours apart 30 MG - Active LOSARTAN-HYDROCHLO ROTHIAZIDE (unknown strength) take 1 tablet by oral route every day Not Available - Active AMLODIPINE BESYLATE (unknown strength) take 1 tablet by oral route every day Not Available - Active METFORMIN ER OSMOTIC (unknown strength) take 2 tablet by oral route every day with the evening meal Not Available - Active TESTOSTERONE CYPIONATE (unknown strength) inject 0.5 milliliter by intramuscular route every 4 weeks Not Available - Active VITAMIN D3 (unknown strength) take 1 tablet by oral route every day Not Available - Active JATENZO (unknown strength) take 1 capsule by oral route 2 times every day in the morning and evening Not Available - No Longer Active Procedures Procedure Date Colonoscopy Flex; W/remov Les- Level Iv-surg Path Gross/micro Advance Directives Directive Yes / No Effective Date File Name No Information Encounters Encounter Description Practice Location Reason(s) For Visit Diagnoses Date Provider Providers Copied on Encounter [facility], [address] [address], [place], [place], [id number], [place] tel:[phone] [facility] No Information 2 Derrick Siu. [address], [place], [place], [address] , [place]. [phone] Referring Provider: Mario Vidal, [address], [place], [address] . tel:[phone] [facility], [address] [address], [place], [place], [address], [place] tel:[phone] [facility] GI Symptoms or Concerns (chief complaint) Screening ColonoscopyBenign neoplasm of rectumEncounter for screening for malignant neoplasm of colon 2 Aurea Martin. [address], [place], [place], [address] , [place]. tel: [phone] [facility], [address] [address], [place], [place], [address], [place] tel:[phone] [facility] No Information 2 Alvarez Benjamin. [address], [place], [place], [address] , [place]. tel: [phone] Family History Family Member Type Diagnosis Age At Onset Mother Problem (finding) Asthma Immunizations Vaccine Date Status Comments SARS-COV-2 (COVID-19) vaccin e, mRNA, spike protein, LNP, preservative free, 30 mcg/0.3mL dose administered Note: [facility] bi-direct ional interface ; Source: Other Registry Seasonal, quadrivalent, recombinant, injectable influenza vaccine, preservative free administered Note: [facility] bi-direct ional interface ; Source: Other Registry zoster vaccine recombinant administered N ote: [facility] bi-directional interface ; Source: Other Registry zoster vaccine recombinant administered N ote: [facility] bi-directional interface ; Source: Other Registry SARS-COV-2 (COVID-19) vaccin e, mRNA, spike protein, LNP, preservative free, 30 mcg/0.3mL dose administered Note: [facility] bi-direct ional interface ; Source: Other Registry SARS-COV-2 (COVID-19) vaccin e, mRNA, spike protein, LNP, preservative free, 30 mcg/0.3mL dose administered Note: [facility] bi-direct ional interface ; Source: Other Registry Influenza, seasonal, injecta ble, preservative free administered Note: [facility] bi-direct ional interface ; Source: Other Registry Payers Payer name Insurance type Covered constitution party ID Britney johns(s) Erika [id number] Social History Type Description Quantity Date Captured Comments Sex Male Smoking Status No Information Chief Complaint And Reason For Visit No Information Reason For Referral Reason For Referral No Information History Of Present Illness Encounter Date Complaint History Of Prese nt Illness GI Symptoms or Concerns Functional Status Date Functional Assessmen t No Information Medications Administered Medication Instructions Dosage Effective Dates (start - stop) Status Comments JATENZO (unknown strength) take 1 capsule by oral route 2 times every day in the morning and evening Not Available - No Longer Active Instructions Date Instruction Additional Infor cooper Colon Polyps Related to Scree elias Colonoscopy Assessments Type Assessment Date No Information Patient Care Teams Name Effective Dates (start - stop) Status Members No Information
--- OUTSIDE RECORDS SUMMARY | 2023-09-11 06:11 | XMS_ITS | Clinical Summary ---
Author Name Unknown Organization [facility] Address [address] [place] [address] Care Team Providers Care Election Assistant Name Role Phone Daryn Mackay MD Primary [...] Comments Blood Pressure 113/78 05/02/2018 9:12 AM RESTAURANT DISTRICT MANAGER Pulse - - Temperature 36.8 ??C (98.3 ??F) 05/02/2018 7:34 AM CS T Respiratory Rate 16 05/02/2018 9:12 AM RESTAURANT DISTRICT MANAGER Oxygen Saturation 95% 05/02/2018 9:12 AM RESTAURANT DISTRICT MANAGER Inhaled Oxygen Concentration - - Weight 120.2 kg (265 lb) 05/02/2018 7:34 AM RESTAURANT DISTRICT MANAGER Height 182.9 cm (6') 05/02/2018 7:34 AM RESTAURANT DISTRICT MANAGER Body Mass Index 35.94 05/02/2018 7:34 AM RESTAURANT DISTRICT MANAGER Plan of Treatment Not on file Care Teams Election Assistant Relationship Specialty Start Date End Date Daryn Mackay MD PCP - General 04/23/18
== END 2023-09-10 08:23 | disposition home or self-care (01) ==
LOC: NFLDREF 09-11 06:09
PROVIDERS: PCP Physician Assistant Medical; Referring Provider Physician Assistant Medical; Visit Provider Physician Assistant Medical
DX: E11.9 Type 2 diabetes mellitus without complications (principal); I10 Essential (primary) hypertension; E29.1 Testicular hypofunction; E78.5 Hyperlipidemia, unspecified
CPT/HCPCS: 80053; 80061; 82043; 82570; 84403

== ENCOUNTER 2024-03-18 08:45 | Outpatient (CLI) | payer OTHER, SELFPAY ==
--- OUTSIDE RECORDS SUMMARY | 2024-03-21 16:46 | XMS_ITS | Referral Summary ---
Author Organization [facility] Address [address] [place] [address] Care Team Providers Care Historical Manuscripts Curator Name Role Phone Daryn Mackay MD Primary Care Provider + Allergies Active Allergy Reactions Criticality Noted Date Comments No Known Allergies 04/29/2018 Medications apremilast (OTEZLA) 30 MG tablet Take 30 mg by mouth 2 times daily Active losartan-hydroch lorothiazide (HYZAAR) 100-12.5 MG tablet Take 1 tablet by mouth daily Active aspirin (ASA) 325 MG EC tablet Take 325 mg by mouth daily Active amLODIPine (NORVASC) 5 MG tablet Take 5 mg by mouth daily Active Active Problems Problem Noted Date Diagnosed Date colon polyp- Villious Adenoma 05/07/2018 Overview (05/07/2018): Collected: 05/02/2018 Received: 05/02/2018 Reported: 05/05/2018 11:30 [...] Recorded Sex Assigned at Not on file Legal Sex 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 Gender Identity Not on file Sexual Orientation Not on file Last Filed Vital Signs Vital Sign Reading Time Taken Comments Blood Pressure 113/78 05/02/2018 9:12 AM SUB ASSEMBLY TEAM WORKER Pulse - - Temperature 36.8 ??C (98.3 ??F) 05/02/2018 7:34 AM CS T Respiratory Rate 16 05/02/2018 9:12 AM SUB ASSEMBLY TEAM WORKER Oxygen Saturation 95% 05/02/2018 9:12 AM SUB ASSEMBLY TEAM WORKER Inhaled Oxygen Concentration - - Weight 120.2 kg (265 lb) 05/02/2018 7:34 AM SUB ASSEMBLY TEAM WORKER Height 182.9 cm (6') 05/02/2018 7:34 AM SUB ASSEMBLY TEAM WORKER Body Mass Index 35.94 05/02/2018 7:34 AM SUB ASSEMBLY TEAM WORKER Plan of Treatment Not on file Insurance [facility] [place] [place] [address] Care Teams Historical Manuscripts Curator Relationship Specialty Start Date End Date Daryn Mackay MD PCP - General 04/23/18
--- OUTSIDE RECORDS SUMMARY | 2024-03-21 16:46 | XMS_ITS | Clinical Summary ---
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 Gender Identity Not on file Sexual Orientation Not on file Last Filed Vital Signs Vital Sign Reading Time Taken Comments Blood Pressure 113/78 05/02/2018 9:12 AM HEATING MECHANIC Pulse - - Temperature 36.8 ??C (98.3 ??F) 05/02/2018 7:34 AM CS T Respiratory Rate 16 05/02/2018 9:12 AM HEATING MECHANIC Oxygen Saturation 95% 05/02/2018 9:12 AM HEATING MECHANIC Inhaled Oxygen Concentration - - Weight 120.2 kg (265 lb) 05/02/2018 7:34 AM HEATING MECHANIC Height 182.9 cm (6') 05/02/2018 7:34 AM HEATING MECHANIC Body Mass Index 35.94 05/02/2018 7:34 AM HEATING MECHANIC Plan of Treatment Not on file Insurance [facility] [place] [address] Care Teams Recreation Center Director Relationship Specialty Start Date End Date Daryn Mackay MD PCP - General 04/23/18
== END 2024-03-18 08:46 | disposition home or self-care (01) ==
LOC: NFLDREF 03-21 16:44
PROVIDERS: PCP Physician Assistant Medical; Referring Provider Physician Assistant Medical; Visit Provider Physician Assistant Medical
DX: E29.1 Testicular hypofunction (principal)
CPT/HCPCS: 84403

== ENCOUNTER 2024-09-11 09:53 | Outpatient (CLI) | payer OTHER, SELFPAY | END 2024-09-11 09:54 | disposition home or self-care (01) | LOC: NFLDREF 09-14 03:59 | PROVIDERS: PCP Physician Assistant Medical; Referring Provider Physician Assistant Medical; Visit Provider Physician Assistant Medical | DX: E11.9 Type 2 diabetes mellitus without complications (principal); I10 Essential (primary) hypertension; E78.1 Pure hyperglyceridemia; E29.1 Testicular hypofunction; Z79.85 Long-term (current) use of injectable non-insulin antidiabetic drugs; Z12.5 Encounter for screening for malignant neoplasm of prostate | CPT/HCPCS: 80053; 80061; 82043; 82570; 84403; G0103 ==

== ENCOUNTER 2025-01-01 08:46 | Outpatient (CLI) | payer OTHER, SELFPAY ==
[2025-01-01] MEDS: PERFLUTREN LIPID MICROSPHERES 2 ML VIAL IVP (09:31)
--- NOTE | 2025-01-01 09:42 | PC.NURSE ---
20G IV placed in right hand. Definity given per certified emergency vehicle technician instruction. Iv removed intact once test completed.
== END 2025-01-01 08:47 | disposition home or self-care (01) ==
LOC: RAD 08:46
PROVIDERS: PCP Physician Assistant Medical; Visit Provider Physician Assistant Medical
DX: I45.2 Bifascicular block (principal); Z01.818 Encounter for other preprocedural examination
CPT/HCPCS: 93306; Q9957

== ENCOUNTER 2025-03-08 13:05 | Day surgery (SDC) | payer OTHER, SELFPAY ==
[2025-03-08] VITALS (12 sets, daily range): BP systolic 117–141; BP diastolic 73–97; PULSE 75–90; RESP 14–18; TEMP 36.3–36.9; O2SAT 94–98; BMI 29.1
[2025-03-08] MEDS: LACTATED RINGERS 1000 ML 1,000 ML 100 ML IV (13:40)
[2025-03-08] MEDS: SODIUM CHLORIDE 0.9 % (FLUSH) 10 ML SYRINGE IVF (13:40)
--- NOTE | 2025-03-08 13:53 | P.GSOP_ITS ---
Operative Note Date of procedure: 03/08/25 Pre-op diagnosis: Reducible Umbilical hernia Post-op diagnosis: Same Type of Procedure: Open repair of reducible 2.5 cm umbilical hernia Indications: The patient is a 59-year-old male who presented to clinic with an increasingly uncomfortable umbilical hernia. Over the past year it has become larger and more uncomfortable and he desires repair. Procedure Description: After discussing the risks and benefits of the procedure, the patient signed i nformed consent.? The operative site was marked and the patient was brought to the operating room and placed on the operating table in supine position.? Care was taken to pad the patient's pressure points.?? The patient was then intubated by anesthesia.?? The operative site was then prepped and draped in the usual sterile fashion.? A time-out was then performed. Local anesthetic was injected into the fascia, skin and subcutaneous tissues. A curvilinear incision was made just below the umbilicus. Dissection was carried down into the subcutaneous tissue using cautery. The hernia sac was encountered and care was taken to not enter it. Dissection was taken down to the fascia, and the umbilical stalk was carefully dissected off of the hernia sac. Once the hernia sac was dissected out circumferentially, it was reduced. The fascial edges were then cleared circumferentially. The hernia was 2.5 and so the decision was made to use a piece of mesh. A preperitoneal pocket was created using a combination of blunt dissection and cautery. Hemostasis appeared adequate. Once the posterior fascia was clear, a piece of [address] hernia mesh was placed in the preperitoneal space with care to ensure that it laid flat. This was secured into place using 0 PDS interrupted sutures. The tails were then trimmed and the fascial opening was closed with a running 0 PDS. The umbilicus was reapproximated to the fascia using 3-0 Vicryl. The skin was then closed with running absorbable suture. A sterile dressing was then applied. The patient was then woken and transported to the recovery area in stable condition. ? The patient tolerated the procedure well. Findings: 2.5 cm reducible umbilical hernia Anesthesia: [id number] Surgeon: Mamta Hernadez MD Estimated blood loss (mL): 5 Condition: stable Disposition: PACU
--- NOTE | 2025-03-08 13:53 | W.PM.H&PU ---
History & Physical Update History & Physical Update H&P Reviewed and patient assessed: No changes noted
--- NOTE | 2025-03-08 14:32 | SUR.OPER ---
PATIENT QUESTIONS ANSWERED SATISFACTORILY PREOPERATIVELY. PATIENT BROUGHT TO OR #4 PER CART. Patient positioned supine on OR #4 bed. The perioperative team supported arms bilaterally on arm boards. Final approval of positioning by surgeon.
[2025-03-08] MEDS: BUPIVACAINE 0.25% 30 ML INJECTION (14:40)
[2025-03-08] MEDS: BUPIVACAINE 0.25% 30 ML 10 ML INJECTION (15:22)
[2025-03-08] MEDS: BUPIVACAINE LIPOSOME 133 MG/10 ML INJ INFILTRATI (15:22)
--- NOTE | 2025-03-08 15:43 | P.ANES_ITS ---
Anesthesia Charges Start Date/Time Anesthesia Start Date: 03/08/25 Anesthesia Start Time: 14:00 Stop Date/Time Anesthesia Stop Date: 03/08/25 Anesthesia Stop Time: 15:41 Coding CPT Codes CPT Codes: ANESTH REPAIR OF HERNIA - 92534 ([id number]) P3 - PATIENT W/SEVERE SYS DISEASE, QK - GRAIN ELEVATOR MOTOR STARTER 2-4 CNCRNT ANES PROC, QX - PROMOTION PRODUCER SVC W/ MD MED DIRECTION
--- NOTE | 2025-03-08 15:43 | W.ANESCHARGE ---
Anesthesia Charges Start Date/Time Anesthesia Start Date: 03/08/25 Anesthesia Start Time: 14:00 Stop Date/Time Anesthesia Stop Date: 03/08/25 Anesthesia Stop Time: 15:41 Coding CPT Codes CPT Codes: ANESTH REPAIR OF HERNIA - 47703 ([id number]) P3 - PATIENT W/SEVERE SYS DISEASE, QK - STACKER STRAIGHTENER 2-4 CNCRNT ANES PROC, QX - STACKER STRAIGHTENER SVC W/ MD MED DIRECTION
--- NOTE | 2025-03-08 15:46 | P.ANES_ITS ---
Anesthesia Charges Start Date/Time Anesthesia Start Date: 03/08/25 Anesthesia Start Time: 14:00 Stop Date/Time Anesthesia Stop Date: 03/08/25 Anesthesia Stop Time: 15:41 Coding CPT Codes CPT Codes: ANESTH REPAIR OF HERNIA - 60810 ([id number]) QX - FORENSIC DNA ANALYST CHEPE W/ MD MED DIRECTION, QK - ACUTE DIALYSIS REGISTERED NURSE 2-4 CNCRNT ANES PROC, P3 - PATIENT W/SEVERE SYS DISEASE
--- NOTE | 2025-03-08 15:46 | W.ANESCHARGE ---
Anesthesia Charges Start Date/Time Anesthesia Start Date: 03/08/25 Anesthesia Start Time: 14:00 Stop Date/Time Anesthesia Stop Date: 03/08/25 Anesthesia Stop Time: 15:41 Coding CPT Codes CPT Codes: ANESTH REPAIR OF HERNIA - 34186 ([id number]) QX - TACK PICKER CHEPE W/ MD MED DIRECTION, QK - BIOLOGICAL SCIENCE TECHNICIAN 2-4 CNCRNT ANES PROC, P3 - PATIENT W/SEVERE SYS DISEASE
--- NOTE | 2025-03-08 16:03 | SUR.PHASEI ---
Patient is comfortable, awake, no nausea, and meets discharge criteria from PACU.
== END 2025-03-08 17:33 | disposition home or self-care (01) ==
PROVIDERS: PCP Physician Assistant Medical; Visit Provider Surgery
PROC: (CPT 49591; principal; 2025-03-08 14:15)
DX: K42.9 Umbilical hernia without obstruction or gangrene (principal)
CPT/HCPCS: 49591; 00832; A4467; J0665; J0666; J0690; J1100; J1171; J1885; J2250; J2405; J2704; J3010; J7120